=== PATIENT | female | born 1935 | race Two or more races ===

== ENCOUNTER 2017-07-30 11:38 | Outpatient (CLI) | payer OTHER | END 2017-07-30 15:25 | disposition home or self-care (01) | LOC: SONOGRAMA 11:38 | DX: N11.1 Chronic obstructive pyelonephritis (principal) ==

== ENCOUNTER → 2017-08-21 | Outpatient (CLI) | payer OTHER | END | disposition home or self-care (01) | LOC: TOM 08:30 | DX: N28.89 Other specified disorders of kidney and ureter (principal) | CPT/HCPCS: 74177; Q9965 ==